=== PATIENT | male | born 1945 | race Asian ===

== ENCOUNTER 2025-05-10 09:18 | Outpatient (AMB) | payer MEDICAID, SELFPAY ==
[2025-05-10 09:56] VITALS: BP 160/100; PULSE 71; RESP 16; O2SAT 98
--- NOTE | 2025-05-10 09:56 | A.OFFVIS_ITS ---
Vital Signs 05/10/25 09:56 Height 5 ft 5 in BP 160/100 H Blood Pressure Location Lt brachial Position Sitting Respiration 16 Pulse 71 Pulse Oximetry (%) 98 Intake Visit Reasons: 6M Sales Service Route Manager Required: Yes Sales Service Route Manager Services: Sales Service Route Manager Present Sales Service Route Manager Name: Daughter Information Interpreted: non-clinical & clinical Accompanied by: Daughter Allergies No Known Allergies Allergy (Verified 05/10/25 09:56) HPI Comments Details: This is a 79-year-old male patient following in the clinic for Parkinson's disease. According to office notes from 11/09/2024 by Michelle ARORA, this patient was experiencing pressure in chest, difficulty breathing which reduced after initiation of carbidopa levodopa. He continued to have some dizziness the less than prior. He was experiencing more right hand tremor at rest but without any functional impairment. At last visit, his carbidopa levodopa was increased from 25/100 1/2 tablet 3 times daily to 1/2 tablet 4 times daily. It is noted, that his workup in [facility] included a nuclear brain scan which showed asymmetry of dopamine uptake in the basal ganglia by about 18%. He is here today presenting with his daughter. He tells me that he no longer feels as though the carbidopa levodopa has any benefit to him. He has not seen any difference in his tremor since initiation of the medication at half a tablet 3 times daily. He has not increase to 4 times daily dosing because he feels that the medication only makes him dizzy and provide some benefit. Syncope dizziness, he has not had any difficulty with his day-to-day activities at home. He does not need any help dressing, bathing, grooming, mood, or drinking. He does live with his daughter and does not currently drive. He does however walk long distances at home daily which he has no difficulties with. He has not had any falls. He does not get lost so we used walker. Daughter does not believe that he has had any cognitive decline. He is overall sleeping well. He is now other concerns for today's visit aside from his tremor profound and dizziness with the carbidopa levodopa. [facility] Medical History (Updated 05/10/25 @ 10:17 by Eunice Spaulding CNP) Parkinson disease Review of Systems Const All systems reviewed & are unremarkable except as noted in HPI and below Physical Exam Vital Signs: Last Vital Signs Pulse 71 05/10/25 09:56 Resp 16 05/10/25 09:56 BP 160/100 H 05/10/25 09:56 Pulse Ox 98 05/10/25 09:56 Const General: cooperative, healthy appearing, comfortable and no acute distress Nutritional Appearance: well nourished Orientation/consciousness: patient oriented x3 Limitations: no limitations HEENT Other: Slightly masked faces Head: Yes normal to inspection and Yes normocephalic Eyes General: appearance normal, both eyes and all related structures Visual Wolff: normal visual wolff by confrontation Alignment and Position: alignment normal Periorbital: periorbital findings normal Eyelids: Yes eyelids normal Conjunctivae: conjunctivae normal Sclerae: sclerae normal Direct Ophthalmoscopy: normal light reflex Neck Neck: Yes normal visual inspection and Yes full ROM General: Yes no CVA tenderness Back/Spine/Pelvis Back: no CVA tenderness Cervical Spine: normal cervical lordosis Thoracic/Lumbar Spine: thoracic and lumbar spine normal to inspection Neuro General: patient oriented x3, tone normal and deep tendon reflexes 2+ bilaterally Cranial nerves: Yes CN's II-XII intact bilaterally and Yes Facial sensation intact/muscles of mastication intact Cognition (Neuro): normal cognition Gait exam (Neuro): Normal gait present, not shuffling, not wide-based and Other gait observations present (Normal arm sway bilaterally though RUE tremor worse with ambulation ) Motor exam (neuro): 5/5 motor strength present throughout and Tremors during motor activity present (Present at rest intermittently and worse during ambulati on ) right upper extremity Sensory Exam: double simultaneous stimulation for sensation normal Romberg Test: Negative Pupils: Normal pupillary reactivity/response: bilateral Psych Appearance: grossly normal Mental Status: mental status grossly normal Speech and movement: Normal speech and movement present and Clear speech present Affect: normal affect Attitude: cooperative Thought process: Normal thought process present Thought content: Normal thought content present Insight: Good insight present (Psych) Judgement: Good judgement present (Psych) Assessment & Plan Assessment & Plan (1) Parkinson disease: Code(s): G20.A1 - Parkinson's disease without dyskinesia, without mention of fluctuations Category: Medical Plan: . Plan This is a 79-year-old male patient following in the clinic for Parkinson's disease. He was originally diagnosed in [facility] after development of right upper extremity tremor. He did have a positive dopamine scan. He originally reported some improvement in his symptoms with carbidopa levodopa however the patient to day tells me that he has more recently seen no improvement in his a consult with use of the carbidopa levodopa at half a tablet (25/100) and feels that it has only contributed to his dizziness. He can not tolerate 1 full tablet. He has not trialed any other alternative agents for control of his tremor. Side from the tremor and his dizziness, he has no other concerns for profound symptoms. He has not had any significant impact on his day-to-day activities. I am recommending that he stop the carbidopa levodopa and start trial of amantadine 100 mg daily after a couple of weeks can increase dose to 100 mg twice daily and then we will follow up in 1 month. He was encouraged overall to continue with moderate activity regularly. -stop carbidopa levodopa -start a trial of amantadine 100 mg daily and then increase to 100 mg twice daily after a couple of weeks -follow-up in 1 month -continue with moderate daily activity Coding Level of Care Code Est Pt Level 4 (17487) Diagnoses Parkinson disease G20.A1
== END 2025-05-10 10:10 | disposition home or self-care (01) ==
LOC: HO.HSM 09:19
PROVIDERS: PCP Family Medicine; Visit Provider Nurse Practitioner
DX: G20.A1 Parkinson's disease without dyskinesia, without mention of fluctuations (principal)
CPT/HCPCS: 99214

== ENCOUNTER → 2025-05-10 09:18 | Outpatient (BNVA) | payer MEDICAID, SELFPAY | PROVIDERS: PCP Family Medicine; Visit Provider Nurse Practitioner | DX: G20.A1 Parkinson's disease without dyskinesia, without mention of fluctuations (principal) | CPT/HCPCS: 99212 ==

== ENCOUNTER 2025-06-12 09:52 | Outpatient (AMB) | payer MEDICAID, SELFPAY ==
--- NOTE | 2025-06-12 10:02 | A.OFFVIS_ITS ---
Vital Signs 06/12/25 10:03 Height 5 ft Weight 5 lb BMI 1.0 BP 150/90 H Blood Pressure Location Lt brachial Position Sitting Respiration 16 Pulse 81 Pulse Source Pulse Oximeter Pulse Oximetry (%) 99 Oxygen Delivery Method Room Air Intake Visit Reasons: 1M Electric Screw Driver Operator Required: Yes Accompanied by: Daughter Allergies No Known Allergies Allergy (Verified 06/12/25 10:04) Medication List - Last Reconciled 06/12/25 by Eunice Spaulding CNP amantadine HCl Take 1 tablet by mouth in the morning and take 2 tablets by mouth in the evening 30 days melatonin 3 mg (3 x 1 mg) PO BEDTIME 30 days HPI Comments Details: This is a 79-year-old male patient following in the clinic for Parkinson's disease. According to office notes from 11/09/2024 by Michelle ARORA, this patient was experiencing pressure in chest, difficulty breathing which reduced after initiation of carbidopa levodopa. He continued to have some dizziness the less than prior. He was experiencing more right hand tremor at rest but without any functional impairment. Carbidopa levodopa was increased from 25/100 1/2 tablet 3 times daily to 1/2 tablet 4 times daily. It is noted, that his workup in [facility] included a nuclear brain scan which showed asymmetry of dopamine uptake in the basal ganglia by about 18%. At the time of his last office visit with me in April of 2025, his daughter noted that he felt as though there was no benefit from the carbidopa levodopa in terms of his tremor. He has been taking half a tablet 3 times a day. He also was feeling very dizzy with the medication and having headaches. He was however still relatively independent in terms of dressing, bathing, grooming, mood and eating/drinking. He lives with his daughter but was not currently driving. He did walk long distances at home with no difficulties and has not had any recent falls. He had not been experiencing any cognitive decline. Because he was having difficulty with tolerating the carbidopa levodopa even at half of a tablet with headaches and dizziness, I started him on a trial of amantadine 100 mg in the morning and then increasing to 100 mg twice daily after 2 weeks. He does note that after initiating the amantadine he has nearly no dizziness and his headaches are improved. He still however is experiencing headache at a lesser degree on a daily basis. His tremor however has not subsided and he continues to have a significant upper extremity tremor especially to the right side. He also has been experiencing more insomnia, rough sounding voice, and constipation which seemingly are more prominent since starting on the amantadine and coming off of the carbidopa levodopa. [facility] Medical History (Updated 06/12/25 @ 10:43 by Eunice Spaulding CNP) Parkinson disease Physical Exam Vital Signs: Last Vital Signs Pulse 81 06/12/25 10:03 Resp 16 06/12/25 10:03 BP 150/90 H 06/12/25 10:03 Pulse Ox 99 06/12/25 10:03 Oxygen Delivery Method Room Air 06/12/25 10:03 BMI result Body Mass Index 1.0 Const General: cooperative, healthy appearing, comfortable and no acute distress Nutritional Appearance: well nourished Orientation/consciousness: patient oriented x3 Limitations: no limitations HEENT Other: Slightly masked faces Head: Yes normal to inspection and Yes normocephalic Eyes General: appearance normal, both eyes and all related structures Visual Mathis: normal visual mathis by confrontation Alignment and Position: alignment normal Periorbital: periorbital findings normal Eyelids: Yes eyelids normal Conjunctivae: conjunctivae normal Sclerae: sclerae normal Direct Ophthalmoscopy: normal light reflex Neck Neck: Yes normal visual inspection and Yes full ROM General: Yes no CVA tenderness Back/Spine/Pelvis Back: no CVA tenderness Cervical Spine: normal cervical lordosis Thoracic/Lumbar Spine: thoracic and lumbar spine normal to inspection Neuro General: patient oriented x3, tone normal and deep tendon reflexes 2+ bilaterally Cranial nerves: Yes CN's II-XII intact bilaterally and Yes Facial sensation intact/muscles of mastication intact Cognition (Neuro): normal cognition Gait exam (Neuro): Normal gait present, not shuffling, not wide-based and Other gait observations present (Normal arm sway bilaterally though RUE tremor worse with ambulation ) Motor exam (neuro): 5/5 motor strength present throughout and Tremors during motor activity present (Present at rest intermittently and worse during ambulation ) Sensory Exam: double simultaneous stimulation for sensation normal Romberg Test: Negative Pupils: Normal pupillary reactivity/response: bilateral Psych Appearance: grossly normal Mental Status: mental status grossly normal Speech and movement: Normal speech and movement present and Clear speech present Affect: normal affect Attitude: cooperative Thought process: Normal thought process present Thought content: Normal thought content present Insight: Good insight present (Psych) Judgement: Good judgement present (Psych) Assessment & Plan Assessment & Plan (1) Parkinson disease: Code(s): G20.A1 - Parkinson's disease without dyskinesia, without mention of fluctuations Category: Medical (2) Insomnia: Code(s): G47.00 - Insomnia, unspecified Category: Medical (3) Headache: Code(s): R51.9 - Headache, unspecified Category: Medical Plan This is a 79-year-old male patient following in the clinic for Parkinson's disease. Unfortunately, he could not tolerate carbidopa levodopa even at low doses due to headaches and dizziness. Since stopping the carbidopa levodopa his dizziness has subsided though he does continue to have some headaches but at a lesser degree on the amantadine. He has been taking amantadine 100 mg twice daily for the past couple of weeks and unfortunately has not seen any difference in his tremor. He also does note some slight worsening of insomnia, constipation, and hypophonia. It may be reasonable to try increasing the amantadine dose to see if we can improve some of his symptoms. Unfortunately, he continues to have some headaches though they are better than when he was previously on the carbidopa levodopa. He also notes some poor sleep quality. I would like to give him melatonin for his sleep. Once his sleep is better controlled he may see an improvement in his headaches. Based on available literature, amantadine is 1 of the options for treatment of Parkinson's disease that is not heavily associated with headache compared to other agents. We will however continue to monitor him closely and I am recommending that he see 1 of our movement disorder specialists for further recommendations on management. -increase amantadine to 100 mg a.m. and 200 mg p.m. -start melatonin with goal dose of 3 mg nightly -internal referral to movement disorder specialist Dr. Neumann -I am happy to follow up with the patient after he sees movement for continued collaborative management Medications: New melatonin Day 1: Take 1 tablet by mouth before bed Day 2: Take 2 tablets by mouth before bed (if previous dose was tolerated) Day 3 and beyond: Take 3 tablets by mouth before bed (if previous dose was tolerated) 3 mg (3 x 1 mg) PO BEDTIME 90 tabs 5RF sleep 30 days Changed From amantadine HCl Take 1 tablet by mouth daily for 2 weeks and then increase dose to 1 tablet by mouth twice daily. 100 mg PO BID 30 days 60 tabs 3RF To amantadine HCl Take 1 tablet by mouth in the morning and take 2 tablets by mouth in the evening 90 tabs 3RF 30 days Coding Level of Care Code Est Pt Level 4 (55479) Diagnoses Parkinson disease G20.A1 Insomnia G47.00 Headache R51.9
[2025-06-12 10:03] VITALS: BP 150/90; PULSE 81; RESP 16; O2SAT 99
== END 2025-06-12 10:44 | disposition home or self-care (01) ==
LOC: HO.HSM 09:53
PROVIDERS: PCP Family Medicine; Visit Provider Nurse Practitioner
DX: G20.A1 Parkinson's disease without dyskinesia, without mention of fluctuations (principal); G47.00 Insomnia, unspecified; R51.9 Headache, unspecified
CPT/HCPCS: 99214

== ENCOUNTER → 2025-06-12 09:52 | Outpatient (BNVA) | payer MEDICAID, SELFPAY | PROVIDERS: PCP Family Medicine; Visit Provider Nurse Practitioner | DX: G20.A1 Parkinson's disease without dyskinesia, without mention of fluctuations (principal); G47.00 Insomnia, unspecified; R51.9 Headache, unspecified | CPT/HCPCS: 99212 ==

== ENCOUNTER 2025-06-26 11:19 | Outpatient (AMB) | payer MEDICAID, SELFPAY ==
--- NOTE | 2025-06-26 11:25 | MHC.OFFVIS ---
Vital Signs 06/26/25 11:26 Height 5 ft Weight 123 lb 2 oz BMI 24.0 BP 140/94 H Blood Pressure Location Rt brachial Position Sitting Pulse 73 Pulse Source Pulse Oximeter Pulse Oximetry (%) 98 Oxygen Delivery Method Room Air Intake Visit Reasons: Movement Evaluation (Pt EB)Ok PER MD (CONF.) Intake Note: Movement evaluation Mechanical Door Repairer Required: Yes Mechanical Door Repairer Services: Mechanical Door Repairer Offered & Declined Mechanical Door Repairer Name: Abebe lemus Accompanied by: Daughter Allergies No Known Allergies Allergy (Verified 06/26/25 11:31) Medication List - Last Reconciled 06/26/25 by Giovana Neumann MD amantadine HCl Take 1 tablet by mouth in the morning and take 2 tablets by mouth in the evening 30 days melatonin 5 mg PO .qhs pramipexole ER 0.375 mg PO BEDTIME HPI Comments Details: 79y/o Right handed male comes for further management of his Parkinsons disease. He was diagnosed with Parkinsons 1 year ago in [facility] . His main symptom was right handed tremors .His workup in [facility] included a nuclear brain scan which showed asymmetry of dopamine uptake in the basal ganglia by about 18%. He was not started on any meds in [facility]. when he came [place] he was started on Carbidopa/levodopa 25/100. . He feels dizzy and has dryness of his mouth.He was started on amantadine and carbidopa levodopa was stopped. His dizziness started 1 hr after taking medications He denies any cognitive issues. His speech is softer No drooling He lost his sense of smell He also sleep issues/ He has vivid dreams and screams during sleep. He can write but very difficult. He was however still relatively independent in terms of dressing, bathing, grooming, mood and eating/drinking. He lives with his daughter but was not currently driving. He also reports headaches - left occipital region No light or noise sensitivity He is eating less now. He has constipation His tremor however has not subsided and he continues to have a significant upper extremity tremor especially to the right side. He is not sure if he has vertigo.No tinnitus No hallucinations No family h/o parkinsons, no head injury , no exposure to chemicals. [facility] Medical History (Updated 06/26/25 @ 11:56 by Giovana Neumann MD) Constipation REM behavioral disorder Parkinson disease Physical Exam Vital Signs: Last Vital Signs Pulse 73 06/26/25 11:26 BP 140/94 H 06/26/25 11:26 Pulse Ox 98 06/26/25 11:26 Oxygen Delivery Method Room Air 06/26/25 11:26 BMI result Body Mass Index 24.0 Const General: cooperative, healthy appearing and no acute distress Nutritional Appearance: obese Orientation/consciousness: patient oriented x3 HEENT Head: Yes normal to inspection Neck Other: mild antecollis and restricted range of motion Neuro Other: Mild decreased blink and facial expression mild lower lip tremors, tongue tremors , slow tongue movements Voice- normal Right UE high amplitude rest tremors FineFinger movements - mildly decreased emperatriz l>R Alternating hand movements - decreased emperatriz Hand movements - decreased emperatriz Foot taps- decreased emperatriz No cog wheel rigidity gait - stooped, mild slowness and decreased arm swing R>L General: patient oriented x3 and no focal motor deficits Cranial nerves: Yes CN's II-XII intact bilaterally, Yes Bilaterally intact EOM present, Yes Normal facial strength present and Yes Midline tongue present Cognition (Neuro): normal cognition Motor exam (neuro): 5/5 motor strength present throughout and Normal motor muscle tone present throughout Deep tendon reflexes (DTR's): Right triceps reflex intensity grade: 1+, Left triceps reflex intensity grade: 1+, Rt Biceps (C5, C6): 1+, Left biceps reflex intensity grade: 1+, Right brachioradialis reflex intensity grade: 1+, Left brachioradialis reflex intensity grade: 1+, Right patellar reflex intensity grade: 1+, Left patellar reflex intensity grade: 2+ and Right ankle reflex intensity grade: 2+ Coordination: [id number] test normal Assessment & Plan Assessment & Plan (1) Parkinson disease: Comment: without dyskinesia , tremor predominant with orthostatic intolerance Code(s): G20.A1 - Parkinson's disease without dyskinesia, without mention of fluctuations Category: Medical (2) REM behavioral disorder: Code(s): G47.52 - REM sleep behavior disorder Category: Medical (3) Constipation: Code(s): K59.00 - Constipation, unspecified Category: Medical Plan Amantadine 100mg bid Increase melatonin 5-10 mg for RBD I will trial him on Pramipexole 0.375 mf XR qhs Increase fluid intake Miralax qd for constipation Medications: New polyethylene glycol 3350 (Miralax) 17 grams PO DAILY 238 grams 0RF melatonin 5 mg PO .qhs 30 caps 6RF pramipexole ER 0.375 mg PO BEDTIME 30 tabs 6RF Discontinued melatonin Day 1: Take 1 tablet by mouth before bed Day 2: Take 2 tablets by mouth before bed (if previous dose was tolerated) Day 3 and beyond: Take 3 tablets by mouth before bed (if previous dose was tolerated) Discontinued Reason: Doctor's Order 3 mg (3 x 1 mg) PO BEDTIME 90 tabs 5RF sleep 30 days Coding Level of Care Code Est Pt Level 5 (21914) Complex EM visit Add On G2211 Diagnoses Parkinson disease G20.A1 REM behavioral disorder G47.52 Constipation K59.00
[2025-06-26 11:26] VITALS: BP 140/94; PULSE 73; O2SAT 98; BMI 24.0
== END 2025-06-26 12:03 | disposition home or self-care (01) ==
LOC: HO.HSMS 11:20
PROVIDERS: PCP Family Medicine; Visit Provider Psychiatry & Neurology Neurology
DX: G20.A1 Parkinson's disease without dyskinesia, without mention of fluctuations (principal); G47.52 REM sleep behavior disorder; K59.00 Constipation, unspecified
CPT/HCPCS: 99215

== ENCOUNTER → 2025-06-26 11:19 | Outpatient (BNVA) | payer MEDICAID, SELFPAY | PROVIDERS: PCP Family Medicine; Visit Provider Psychiatry & Neurology Neurology | DX: G20.A1 Parkinson's disease without dyskinesia, without mention of fluctuations (principal); G47.52 REM sleep behavior disorder; K59.00 Constipation, unspecified; R51.9 Headache, unspecified | CPT/HCPCS: 99212 ==